=== PATIENT | male | born 1955 | race Caucasian/White ===

== ENCOUNTER → 2019-03-20 | Outpatient (CLI) | payer SELFPAY ==
[~2019-03-20] MED LIST: CEPH500 PO; HYDR1TAB94 PO; OXYC5 PO; Roxicodone5 MG PO; WARF4 PO
[2019-03-20 08:19] LABS: BASOPHILS ABSOLUTE AUTO 0.06 K/mm3 (0.00-0.23); BASOPHILS PERCENT AUTO 1 % (0-2); EOSINOPHILS ABSOLUTE AUTO 0.15 K/mm3 (0.00-0.68); EOSINOPHILS PERCENT AUTO 2 % (0-6); Hemoglobin 15.7 g/dL (13.5-17.5); IMMATURE GRAN ABSOLUTE AUTO 0.01 K/mm3 (0.00-0.10); IMMATURE GRAN PERCENT AUTO 0 % (0-1); LYMPHOCYTES ABSOLUTE AUTO 1.56 K/mm3 (0.84-5.20); LYMPHOCYTES PERCENT AUTO 25 % (21-46); MONOCYTES ABSOLUTE AUTO 0.43 K/mm3 (0.16-1.47); MONOCYTES PERCENT AUTO 7 % (4-13); Mean Corpuscular HGB 31.4 pg (26.0-34.0); Mean Corpuscular HGB Conc 33.4 g/dL (31.5-36.5); Mean Corpuscular Volume 94 fL (80-100); Mean Platelet Volume 9.1 fL (9.1-12.4); NEUTROPHILS ABSOLUTE AUTO 4.11 K/mm3 (1.96-9.15); NEUTROPHILS PERCENT AUTO 65 % (41-73); Platelet Count 192 K/mm3 (150-400); RDW Coefficient Variation 12.4 % (11.7-14.2); RDW Standard Deviation 42.5 fL (35.1-46.3); White Blood Cell Count 6.32 K/mm3 (4.00-11.30)
[2019-03-20 08:39] LABS: Alanine Aminotransfer (ALT/SGP 37 U/L (12-78); Albumin/Globulin Ratio 1.1 (0.8-1.8); Alk Phos 108 U/L (40-126); Anion Gap 7 mmol/L (6-16); Aspartate Aminotrans (AST/SGOT 25 U/L (12-37); Bilirubin, Total 0.7 mg/dL (0.1-1.0); Blood Urea Nitrogen 11 mg/dL (8-24); Bun/Creatinine Ratio 13.8 (12.0-20.0); CO2, Blood 29 mmol/L (21-32); Calcium, Blood 9.2 mg/dL (8.5-10.1); Chloride, Blood 102 mmol/L (98-108); Globulin, Blood 3.6 g/dL (2.2-4.0); Glomerular Filtration Rate >60 (60-); Glucose, Blood 89 mg/dL (70-99); Potassium, Blood 4.1 mmol/L (3.5-5.5); Sodium, Blood 138 mmol/L (136-145); Total Protein, Blood 7.6 g/dL (6.4-8.2)
[2019-03-20 09:09] LABS: PSA, %Free 21.9 %; PSA, Free 0.145 ng/mL; Prostate Specific Antigen 0.662 ng/mL (0.000-4.000)
== END | disposition home or self-care (01) ==
LOC: LAB EV 08:14 → LAB SHORT 08:14
PROVIDERS: Physician Assistant
DX: N40.1 Benign prostatic hyperplasia with lower urinary tract symptoms (principal); R10.32 Left lower quadrant pain
CPT/HCPCS: 80053; 83690; 84153; 84154; 85025

== ENCOUNTER 2019-04-01 03:15 | Emergency (ER) | payer OTHER ==
[~2019-04-01] VITALS: Ht 180.3 cm; Wt 90.7 kg
== END 2019-04-01 05:38 | disposition home or self-care (01) ==
LOC: ER 03:15
DX: K40.90 Unilateral inguinal hernia, without obstruction or gangrene, not specified as recurrent (principal); Z87.891 Personal history of nicotine dependence
CPT/HCPCS: 36415; 99283

== ENCOUNTER 2019-04-04 07:50 | Day surgery (SDC) | payer OTHER ==
[~2019-04-04] VITALS: Ht 180.3 cm; Wt 91.8 kg
--- NOTE | 2019-04-04 08:31 | NUR ---
History, Chart, Medications and Allergies reviewed before start of procedure. Patient confirms NPO status and agrees with scheduled surgery. Patient reports completing Chlorhexadine shower X2 prior to admission to hospital. Pre-Op teaching done. Pt verbalizes understanding.
--- NOTE | 2019-04-04 12:53 | NUR ---
PT STATED HE FELT REALLY DIORIENTED ON ARRIVAL FROM PACU. REPORT FROM PIERO GIBSON RN. PT DOES NOT USUALLY TAKE ANY MIND ALTERING SUBSTANCES. PROVIDED EMOTIONAL SUPPORT, AT BEDSIDE. WARMING BLANKET, QUIET DARK AREA ACHIEVED. DRESSINGS TO ABD X3 CDI.
--- NOTE | 2019-04-04 13:49 | NUR ---
ASSUMED CARE OF PATIENT. VSS, WANTED TO BE LEFT ALONE AND ALLOWED TO REST. AFTER 20 MINUTES CALLED INTO BAY ASKING FOR TYLENOL FOR PAIN STATES DOSE NOT WANT ANYTHING STRONG THAT WILL MAKE HIM TIRED. TYLENOL ORDER GOTTEN AND GIVEN TO PATIENT .
--- NOTE | 2019-04-04 14:51 | NUR ---
Patient up to Ambulate WITH STAND BY ASSIST. IVS REMOVED IN RIGHT FOREARM AND LEFT HAND. BOTH 18G AND WNL. Discharge instructions reviewed with patient. Patient verbalizes understanding. Copy given to patient to take home. Discharged via wheelchair to private car for ride home WITH FAMILY. ABDOMENAL BINDER GIVEN FOR SUPPORT AND COMFORT
== END 2019-04-04 12:00 | disposition home or self-care (01) ==
LOC: ORSCMMR 07:50 → ORD 10:00 → ORSCMMR 10:00 → ORD 04-13 07:30
PROVIDERS: Surgery
PROC: 8E0W4CZ Robotic Assisted Procedure of Trunk Region, Percutaneous Endoscopic Approach (ICD-10-PCS; principal; 2019-04-04 10:00)
PROC: 0YU84JZ Supplement Left Femoral Region with Synthetic Substitute, Percutaneous Endoscopic Approach (ICD-10-PCS; principal; 2019-04-04 10:00)
DX: K41.30 Unilateral femoral hernia, with obstruction, without gangrene, not specified as recurrent (principal)
CPT/HCPCS: 49659; S2900; A9270; C1781; J0330; J0690; J1885; J2250; J2370; J2405; J3010; J7120

== ENCOUNTER → 2024-08-30 | Outpatient (CLI) | payer BC ==
[~2024-08-30] MED LIST changes: +ATOR10 PO; +ATOR20; +Ketoconazole120 ML TOP; +ONDA4ODT MM; +TAMS.4ER PO; +TERB250 PO
[2024-08-30 18:48] LABS: BASOPHILS ABSOLUTE AUTO 0.06 K/mm3 (0.00-0.23); BASOPHILS PERCENT AUTO 1 % (0-2); EOSINOPHILS ABSOLUTE AUTO 0.10 K/mm3 (0.00-0.68); EOSINOPHILS PERCENT AUTO 1 % (0-6); Hematocrit 40.4 % (37.0-53.0); Hemoglobin 13.3 g/dL (13.5-17.5); IMMATURE GRAN ABSOLUTE AUTO 0.02 K/mm3 (0.00-0.10); IMMATURE GRAN PERCENT AUTO 0 % (0-1); LYMPHOCYTES ABSOLUTE AUTO 1.51 K/mm3 (0.84-5.20); LYMPHOCYTES PERCENT AUTO 18 % (21-46); MONOCYTES ABSOLUTE AUTO 0.74 K/mm3 (0.16-1.47); MONOCYTES PERCENT AUTO 9 % (4-13); Mean Corpuscular HGB Conc 32.9 g/dL (31.5-36.5); Mean Corpuscular Volume 96 fL (80-100); NEUTROPHILS ABSOLUTE AUTO 5.86 K/mm3 (1.96-9.15); NEUTROPHILS PERCENT AUTO 71 % (41-73); NRBC ABSOLUTE 0.00 K/mm3 (0.00-0.02); NRBC Auto 0.0 /100 WBC (0.0-0.2); Platelet Count 189 K/mm3 (150-400); RDW Coefficient Variation 12.4 % (11.7-14.2); RDW Standard Deviation 42.8 fL (35.1-46.3)
[2024-08-30 18:57] LABS: Alanine Aminotransfer (ALT/SGP 36.0 U/L (12-78); Albumin, Blood 3.5 g/dL (3.4-5.0); Albumin/Globulin Ratio 1.0 (0.8-1.8); Anion Gap 10.0 mmol/L (3-11); Aspartate Aminotrans (AST/SGOT 25.0 U/L (12-37); Bilirubin, Total 0.6 mg/dL (0.1-1.0); Blood Urea Nitrogen 20.0 mg/dL (8-24); CO2, Blood 28.0 mmol/L (21-32); Calcium, Blood 9.2 mg/dL (8.5-10.1); Chloride, Blood 106.0 mmol/L (98-108); Creatinine, Blood 1.03 mg/dL (0.60-1.20); Globulin, Blood 3.6 g/dL (2.2-4.0); Glucose, Blood 104.0 mg/dL (70-99); Potassium, Blood 3.9 mmol/L (3.5-5.5); Sodium, Blood 140.0 mmol/L (136-145); Total Protein, Blood 7.1 g/dL (6.4-8.2)
== END ==
LOC: LAB 18:42 → LAB SHORT 18:42
PROVIDERS: Emergency Medicine
DX: R10.9 Unspecified abdominal pain (principal)
CPT/HCPCS: 80053; 85025

== ENCOUNTER 2024-09-03 19:54 | Emergency (ER) | payer BC ==
[~2024-09-03] VITALS: Ht 180.3 cm; Wt 90.7 kg
[~2024-09-03 19:54] MED LIST changes: -ONDA4ODT MM; -TAMS.4ER PO
[2024-09-03 21:03] LABS: BASOPHILS ABSOLUTE AUTO 0.07 K/mm3 (0.00-0.23); BASOPHILS PERCENT AUTO 1 % (0-2); EOSINOPHILS ABSOLUTE AUTO 0.11 K/mm3 (0.00-0.68); EOSINOPHILS PERCENT AUTO 1 % (0-6); Hematocrit 43.9 % (37.0-53.0); Hemoglobin 14.4 g/dL (13.5-17.5); IMMATURE GRAN ABSOLUTE AUTO 0.04 K/mm3 (0.00-0.10); IMMATURE GRAN PERCENT AUTO 0 % (0-1); LYMPHOCYTES ABSOLUTE AUTO 1.43 K/mm3 (0.84-5.20); LYMPHOCYTES PERCENT AUTO 12 % (21-46); MONOCYTES ABSOLUTE AUTO 0.74 K/mm3 (0.16-1.47); MONOCYTES PERCENT AUTO 6 % (4-13); Mean Corpuscular HGB Conc 32.8 g/dL (31.5-36.5); Mean Corpuscular Volume 94 fL (80-100); NEUTROPHILS ABSOLUTE AUTO 9.34 K/mm3 (1.96-9.15); NEUTROPHILS PERCENT AUTO 80 % (41-73); NRBC ABSOLUTE 0.00 K/mm3 (0.00-0.02); NRBC Auto 0.0 /100 WBC (0.0-0.2); Platelet Count 190 K/mm3 (150-400); RDW Coefficient Variation 12.1 % (11.7-14.2); RDW Standard Deviation 42.2 fL (35.1-46.3)
[2024-09-03 21:14] LABS: Source, Urine Clean Catch
[2024-09-03 21:19] LABS: Bilirubin, Urine Neg (Neg); Glucose Qualitative, Urine Neg (Neg); Ketones, Urine 1+ (Neg); Leukocyte Esterase, Urine Neg (Neg); Protein, Urine Neg (Neg); Specific Gravity, Urine 1.005 (1.003-1.022); Urobilinogen, Urine NORM (Normal)
[2024-09-03 21:22] LABS: Alanine Aminotransfer (ALT/SGP 33.0 U/L (12-78); Albumin, Blood 3.5 g/dL (3.4-5.0); Albumin/Globulin Ratio 0.8 (0.8-1.8); Anion Gap 9.0 mmol/L (3-11); Aspartate Aminotrans (AST/SGOT 24.0 U/L (12-37); Bilirubin, Total 0.7 mg/dL (0.1-1.0); Blood Urea Nitrogen 22.0 mg/dL (8-24); CO2, Blood 24.0 mmol/L (21-32); Calcium, Blood 9.1 mg/dL (8.5-10.1); Chloride, Blood 107.0 mmol/L (98-108); Creatinine, Blood 1.26 mg/dL (0.60-1.20); Globulin, Blood 4.2 g/dL (2.2-4.0); Glucose, Blood 126.0 mg/dL (70-99); Potassium, Blood 3.6 mmol/L (3.5-5.5); Sodium, Blood 136.0 mmol/L (136-145); Total Protein, Blood 7.7 g/dL (6.4-8.2)
[2024-09-03 21:24] LABS: Color, Urine Pale Yellow (P-Yellow)
[2024-09-03] MEDS ORDERED: Ketorolac Tromethamine 30mg Vial IV ONE (21:55)
[2024-09-03] MEDS ORDERED: TAMS.4ER PO (23:44)
[2024-09-03] MEDS ORDERED: HYDR1TAB94 PO (23:44)
[2024-09-03] MEDS ORDERED: RX Prepack 2 Tabs Ondansetron ODT 4MG UD ONE (23:45)
[2024-09-03] MEDS ORDERED: ONDA4ODT MM (23:48)
[2024-09-04 00:15] VITALS: BP 108/75
== END 2024-09-04 00:32 | disposition home or self-care (01) ==
LOC: ER 19:54
PROVIDERS: Student in an Organized Health Care Education/Training Program
DX: N13.2 Hydronephrosis with renal and ureteral calculous obstruction (principal); N28.9 Disorder of kidney and ureter, unspecified; I10 Essential (primary) hypertension; Z87.442 Personal history of urinary calculi; Z90.49 Acquired absence of other specified parts of digestive tract; Z96.641 Presence of right artificial hip joint; Z87.891 Personal history of nicotine dependence; Z88.5 Allergy status to narcotic agent; Z91.030 Bee allergy status; Z79.899 Other long term (current) drug therapy
CPT/HCPCS: 74176; 80053; 81003; 83690; 85025; 96374; 99284-25; A9270; J1885

== ENCOUNTER 2024-10-30 09:35 | Day surgery (SDC) | payer BC ==
[~2024-10-30] VITALS: Ht 180.3 cm; Wt 87.8 kg
[2024-10-30] VITALS (25 sets, daily range): BP systolic 88–138; BP diastolic 54–91
[~2024-10-30 09:35] MED LIST changes: +ONDA4ODT MM; +TAMS.4ER PO
[2024-10-30] MEDS ORDERED: Chlorhexidine Mouth Care 15 ML UDC MT SCH (10:05)
[2024-10-30] MEDS ORDERED: CeFAZolin Sodium 2,000 MG in NS 100 ML IV SCH ×2 (10:05→21:00)
[2024-10-30] MEDS ORDERED: Ropivacaine 0.5% HCl/Pf 123.125 MG,EPINEPHrine HCL 0.25 MG,Ketorolac Tromethamine 15 MG... INFIL SCH (10:05)
[2024-10-30] MEDS ORDERED: Tranexamic Acid 100 ML IV SCH (10:10)
--- NOTE | 2024-10-30 10:53 | NUR ---
History, Chart, Medications and Allergies reviewed before start of procedure. Pre-Op teaching done. Pt verbalizes understanding. Ambulatory in Day [facility]. Patient confirms NPO status and agrees with scheduled surgery. Patient States Post-Procedure ride home has been arranged.
--- NOTE | 2024-10-30 11:05 | NUR ---
PATIENT STATES HIVE/ITCHING WITH OXYCODONE. PRE OP DOSE HELP, OK PER DR. MOORE.
[2024-10-30] MEDS ORDERED: FentaNYL Citrate 50 MCG/ML 2 ML Injection IV PRN ×2 (11:10→11:15)
[2024-10-30] MEDS ORDERED: Midazolam HCl 1MG / ML 2ML Vial IV PRN (11:10)
[2024-10-30] MEDS ORDERED: Ondansetron HCl 2 MG / ML 2ML Vial IV PRN ×2 (11:10→11:25)
[2024-10-30] MEDS ORDERED: Albuterol 2.5 MG/3 ML VIAL INH PRN (11:15)
[2024-10-30] MEDS ORDERED: Prochlorperazine Edisylate 10 mg Vial IV PRN ×2 (11:15→11:25)
[2024-10-30] MEDS ORDERED: HYDROmorphone HCl/Pf 1MG SYR IV PRN ×2 (11:15→11:30)
[2024-10-30] MEDS ORDERED: Magnesium Hydroxide Conc 10 ML UDC PO PRN (11:20)
[2024-10-30] MEDS ORDERED: Metoclopramide HCl 5MG / ML 2ML Vial IV PRN (11:20)
[2024-10-30] MEDS ORDERED: HYDROcodone 5-APAP 325 TAB PO PRN (11:30)
--- NOTE | 2024-10-30 12:05 | NUR ---
REPORT GIVEN TO [facility] VALENZUELA RN.
[2024-10-30] MEDS ORDERED: FLU VACC TS2025(65UP)/MF59C/PF 45 MCG/0.5 ML SYRINGE IM SCH (12:35)
--- NOTE | 2024-10-30 12:39 | NUR ---
REPORT GIVEN TO [facility] TECHNICIANCHAPINCITO GORMAN. PATIENT TRANSFERED TO OR VIA GURNEY.
[2024-10-30] MEDS ORDERED: Ondansetron HCl 2 MG / ML 2ML Vial ONE (13:04)
[2024-10-30] MEDS ORDERED: Dexamethasone Sod Phos 10 MG/ML 1ML VIAL ONE (13:04)
[2024-10-30] MEDS ORDERED: Phenylephrine HCl 100 MCG/ML-NS 10MLSYR (1MG/10ML) ONE (13:13)
[2024-10-30] MEDS ORDERED: FentaNYL Citrate 50 MCG/ML 2 ML Injection ONE (16:23)
[2024-10-30] MEDS ORDERED: Ketorolac Tromethamine 30mg Vial ONE (16:23)
[2024-10-30] MEDS ORDERED: Ketorolac Tromethamine 15mg Vial IV SCH (18:00)
--- NOTE | 2024-10-30 18:28 | NUR ---
SUMMARY ASSUMED CARE OF PT @1700. LETHARGIC BUT RESPONDING TO VOICE. SOFT SPOKEN. BP'S SOFT BUT STABLE. FLUIDS STARTED. ICE PACK TO L JIP IN PLACE - PT REPOSITONED IN BED PER REQUEST. PT PAINFUL - PAIN MEDS PER EMAR. FULL SENSATION TO L LEG, WIGGLING TOES WELL. HAS NOIT VOIDED YET OR HAD PO INTAKE PT IS STILL SOMEWHAT LETHARGIC. FAMILY IN ROOM - EXPRESSING CONCERN REGARDING PT GOING HOME TONIGHT- DECISION MADE TO STAY OVERNIGHT. BED ALARM ON. SCDS ON. CALL LIGHT WOTHIN REACH.
[2024-10-31 03:31] VITALS: BP 118/74
[2024-10-31 05:56] LABS: BASOPHILS ABSOLUTE AUTO 0.01 K/mm3 (0.00-0.23); BASOPHILS PERCENT AUTO 0 % (0-2); EOSINOPHILS ABSOLUTE AUTO 0.00 K/mm3 (0.00-0.68); EOSINOPHILS PERCENT AUTO 0 % (0-6); Hematocrit 30.7 % (37.0-53.0); Hemoglobin 10.0 g/dL (13.5-17.5); IMMATURE GRAN ABSOLUTE AUTO 0.08 K/mm3 (0.00-0.10); IMMATURE GRAN PERCENT AUTO 1 % (0-1); LYMPHOCYTES ABSOLUTE AUTO 0.75 K/mm3 (0.84-5.20); LYMPHOCYTES PERCENT AUTO 5 % (21-46); MONOCYTES ABSOLUTE AUTO 1.15 K/mm3 (0.16-1.47); MONOCYTES PERCENT AUTO 8 % (4-13); Mean Corpuscular HGB Conc 32.6 g/dL (31.5-36.5); Mean Corpuscular Volume 97 fL (80-100); NEUTROPHILS ABSOLUTE AUTO 13.37 K/mm3 (1.96-9.15); NEUTROPHILS PERCENT AUTO 87 % (41-73); NRBC ABSOLUTE 0.00 K/mm3 (0.00-0.02); NRBC Auto 0.0 /100 WBC (0.0-0.2); Platelet Count 141 K/mm3 (150-400); RDW Coefficient Variation 11.9 % (11.7-14.2); RDW Standard Deviation 43.0 fL (35.1-46.3)
[2024-10-31 06:42] LABS: Anion Gap 9.0 mmol/L (3-11); Blood Urea Nitrogen 16.0 mg/dL (8-24); CO2, Blood 25.0 mmol/L (21-32); Calcium, Blood 8.2 mg/dL (8.5-10.1); Chloride, Blood 106.0 mmol/L (98-108); Creatinine, Blood 0.72 mg/dL (0.60-1.20); Glucose, Blood 202.0 mg/dL (70-99); Potassium, Blood 4.2 mmol/L (3.5-5.5); Sodium, Blood 136.0 mmol/L (136-145)
--- NOTE | 2024-10-31 06:43 | NUR ---
SHIFT SUMMARY POD 1 L HIP ARTHROPLASTY WITH FEMUR FX. DRESSING C/D/I. POLAR PACK IN PLACE. PAIN MANAGED PER EMAR. PT REPORTS INCREASED PAIN WITH MOVEMENT. PT URINATING INDEPENDENTLY UTILIZING URINAL. PT DENIES NAUSEA. AWAITING POST OP P/T EVAL AND MOBILITY. PT RESTING COMFORTABLY WITHOUT DISTRESS. CALL LIGHT WITHIN REACH.
[2024-10-31 07:41] VITALS: BP 113/70
[2024-10-31 14:52] VITALS: BP 105/67
[2024-10-31] MEDS ORDERED: ASPI81CH PO (14:55)
--- NOTE | 2024-10-31 16:05 | NUR ---
DISCHARGE NOTE PT IS A/OX4, SPOUSE PRESENT. TOLERATING INTAKE AND OUTPUT. VOIDING WELL. DISCHARGE EDUCATION PROVIDED TO PT AND SPOUSE. VERABLIZED UNDERSTANDING. SPOUSE TOOK PT PERSONAL BELONGINGS. ESCORTED OUT VIA WC.
== END 2024-10-31 16:05 | disposition home health service (06) ==
LOC: ORSCMMR 09:35 → ORD 11:00 → ORSCMMR 11:30 → ORD 11:30 → ORSCMMR 17:03 → SURS 17:03 → ORSCMMR 10-31 16:05 → SURS 10-31 16:05
PROVIDERS: Orthopaedic Surgery
PROC: 0SRB0JZ Replacement of Left Hip Joint with Synthetic Substitute, Open Approach (ICD-10-PCS; principal; 2024-10-30 11:30)
DX: M16.12 Unilateral primary osteoarthritis, left hip (principal); S72.302A Unspecified fracture of shaft of left femur, initial encounter for closed fracture; Y83.8 Other surgical procedures as the cause of abnormal reaction of the patient, or of later complication, without mention of misadventure at the time of the procedure; Y79.2 Prosthetic and other implants, materials and accessory orthopedic devices associated with adverse incidents; Y92.234 Operating room of hospital as the place of occurrence of the external cause; Z96.641 Presence of right artificial hip joint; E78.5 Hyperlipidemia, unspecified; Z79.899 Other long term (current) drug therapy
CPT/HCPCS: 36415; 51701; 72170; 80048; 85025; 97116; 97162; 97530; A9270; C1713; C1776; J0166; J0690; J0735; J1100; J1885; J2371; J2405; J2704; J2795; J3010; J3373; J7050; J7120